=== PATIENT | female | born 1955 | race Caucasian/White ===

== ENCOUNTER → 2018-05-07 | Outpatient (CLI) | payer OTHER ==
--- NOTE | 2018-05-09 08:51 | MM ---
Reason for exam: screening (asymptomatic). Last mammogram was performed 2 years and 11 months ago. History: Patient is postmenopausal. Family history of breast cancer in maternal aunt at age 81. Physical Findings: A clinical breast exam by your physician is recommended on an annual basis and results should be correlated with mammographic findings. MG Screening Mammo w CAD Bilateral CC and MLO view(s) were taken. Prior study comparison: June 10, 2015, bilateral MG screening mammo w CAD. June 02, 2014, bilateral MG screening mammo w CAD. There are scattered fibroglandular densities. No significant changes when compared with prior studies. ASSESSMENT: Negative, BI-RAD 1 RECOMMENDATION: Routine screening mammogram of both breasts in 1 year.
== END ==
LOC: RADMAMWWP 13:56
PROVIDERS: ATTEND Family Medicine
DX: Z12.31 Encounter for screening mammogram for malignant neoplasm of breast (principal)
CPT/HCPCS: 77067

== ENCOUNTER → 2018-11-29 | Outpatient (CLI) | payer OTHER ==
[2018-11-29 14:44] LABS: Basophils # (A) 0.1 k/uL (0-0.2); Basophils % (A) 1 %; Eosinophils # (A) 0.2 k/uL (0-0.7); Eosinophils % (A) 2 %; HCT 40.8 % (34.0-46.0); HGB 13.9 gm/dL (11.4-16.0); Lymphocytes # (A) 2.8 k/uL (1.0-4.8); Lymphocytes % (A) 33 %; MCH 31.2 pg (25.0-35.0); MCHC 34.2 g/dL (31.0-37.0); MCV 91.2 fL (80.0-100.0); Mean Platelet Volume 6.2; Monocytes # (A) 0.5 k/uL (0-1.0); Monocytes % (A) 5 %; Neutrophils # (A) 4.7 k/uL (1.3-7.7); Neutrophils % (A) 56 %; Platelet Count 302 k/uL (150-450); RBC 4.47 m/uL (3.80-5.40); RDW 12.8 % (11.5-15.5); WBC 8.3 k/uL (3.8-10.6)
== END | disposition home or self-care (01) ==
LOC: LABWHC1 13:55
PROVIDERS: ATTEND Orthopaedic Surgery
DX: Z01.812 Encounter for preprocedural laboratory examination (principal); G56.01 Carpal tunnel syndrome, right upper limb
CPT/HCPCS: 80051; 85025

== ENCOUNTER 2018-12-07 08:29 | Day surgery (SDC) | payer OTHER ==
[2018-12-04 15:09] VITALS: BMI 36.3
--- NOTE | 2018-12-06 12:10 | HP ---
HISTORY AND PHYSICAL CHIEF COMPLAINT: Right hand pain and numbness. HISTORY OF PRESENT ILLNESS: The patient is a 63-year-old right-hand dominant female who presents with progressive right hand pain and numbness for the past several years. It has worsened recently. She notes she has tried bracing and medications without much relief. PAST MEDICAL HISTORY: Significant for hypertension and rheumatoid arthritis. PAST SURGICAL HISTORY: Negative. CURRENT MEDICATIONS: 1. Baclofen. 2. Lisinopril. 3. Lopressor. 4. Zantac. She denies drug allergies. FAMILY HISTORY: Family history is significant for heart disease. SOCIAL HISTORY: Significant for current tobacco use. REVIEW OF SYSTEMS: A 16 point review of systems otherwise reviewed and is noncontributory. PHYSICAL EXAMINATION: On examination, the patient is approximately 5 foot 6, 224 pounds of endomorphic habitus. HEENT: Exam is nonfocal. NECK: Supple. She is nontender about the right shoulder and elbow. On examination of her right wrist, she has a positive Tinel's over the carpal canal. Light touch is diffusely diminished throughout the right digits. Mild thenar wasting is noted. Abductor pollicis brevis strength is 5-/5. She has full digital range of motion. EMG report 04/03/2018 shows moderate right carpal tunnel syndrome. IMPRESSION: Right carpal tunnel syndrome-symptomatic. RECOMMENDATIONS: I talked to the patient at length regarding her condition along with treatment options. At this point, she notes she is quite symptomatic despite conservative measures. After a thorough discussion, she opts to proceed with surgery. We will plan to proceed with right carpal tunnel release. Risks and benefits were discussed at length in layman's terms. We will likely perform that utilizing a local anesthetic and IV sedation. MMODL / IJN: [id number] / MTDD
[~2018-12-07 08:29] MED LIST: HYDROmorphone 0.5 MG/0.5 ML SYRINGE IVP PRN; LACTATED RINGERS 1,000 ML IV SCH; MIDAZOLAM 2 MG/2 ML VIAL IV PRN
[2018-12-07 08:56] VITALS: RESP 18; TEMP 98.8
[2018-12-07] MEDS ORDERED: LIDOCAINE 1% 20 ML VIAL (10MG/ML) FOR IV START INTRADERMA ONE (08:57)
[2018-12-07] MEDS ORDERED: fentaNYL (PF) 50 MCG/ML 2 ML AMP ONE (10:43)
[2018-12-07] MEDS ORDERED: PROPOFOL 10 MG/ML 20 ML VIAL IV ONE (10:43)
[2018-12-07] MEDS ORDERED: MIDAZOLAM 2 MG/2 ML VIAL ONE (10:43)
[2018-12-07] MEDS ORDERED: BUPIVACAINE (PF) 0.25% 30 ML VIAL SQ ONE ×3 (10:59)
--- NOTE | 2018-12-07 11:17 | P.OP ---
Date of Procedure: 12/07/18 Preoperative Diagnosis: Right carpal tunnel syndromesymptomatic Postoperative Diagnosis: Same Procedure(s) Performed: Right carpal tunnel release Anesthesia: MAC, local Surgeon: Jaleel Simon Estimated Blood Loss (ml): 1 Pathology: none sent Condition: stable Disposition: PACU Indications for Procedure: The patient's a 63-year-old female who presents with progressive right hand pain and numbness secondary carpal tunnel syndrome despite conservative measures. A discussion of the risks and benefits of operative intervention versus continued conservative measures was made with the patient. She opted to proceed with surgery. Operative risks to include infection, neurovascular injury, development of blood clots, possible incomplete resolution of symptoms, possible recurrence of symptoms and need for subsequent procedures was discussed. Informed consent was obtained. Operative Findings: As below Description of Procedure: The patient was brought to the operating room, and after induction of IV sedation the right upper extremity was prepped and draped in normal fashion. The proposed incision site was outlined skin marker in line with the radial aspect the fourth ray extending from the volar wrist crease distally 2-1/2 cm. One quarter percent plain Marcaine was injected into the proposed incision site. 9 mL was utilized. The tourniquet was inflated to 250 mmHg. The skin incision was then made. The skin was incised sharply. Subcutaneous tissues were divided sharply the superficial palmar fascia was identified and split in line with the skin incision. The transverse carpal ligament was identified and transected under direct visualization distally to level the palmar fat pad. Proximal was taken level of the volar wrist crease. A plane above and below the transverse carpal ligament was then bluntly developed with tenotomies. The confluence of the distal forearm fascia and the transverse carpal ligament was then transected under direct visualization proximally with the tines pointed in the ulnar direction. I felt this was adequate proximal release. Neural lysis was not performed. The wound was irrigated with normal saline. Electrocautery was used for hemostasis. The skin was reapproximated with simple 3-0 nylon sutures. A sterile dressing was applied. The tourniquet was deflated with less than 15 minutes total tourniquet time. Patient was awoken from sedation and transferred to the recovery room in good condition. Blood loss was estimated 1 mL. No complications were incurred. Sponge and needle counts were correct at the end the case.
[2018-12-07 11:44] VITALS: BP 112/77; PULSE 74
== END 2018-12-07 11:51 | disposition home or self-care (01) ==
LOC: OR 08:29
PROVIDERS: ATTEND Orthopaedic Surgery
DX: G56.01 Carpal tunnel syndrome, right upper limb (principal); I10 Essential (primary) hypertension; E78.5 Hyperlipidemia, unspecified; G25.81 Restless legs syndrome; K21.9 Gastro-esophageal reflux disease without esophagitis; M06.9 Rheumatoid arthritis, unspecified; Z79.1 Long term (current) use of non-steroidal anti-inflammatories (NSAID); Z79.899 Other long term (current) drug therapy; Z72.0 Tobacco use; Z82.49 Family history of ischemic heart disease and other diseases of the circulatory system
CPT/HCPCS: 64721; J2250; J0690; J3010; J2704

== ENCOUNTER 2019-02-22 09:37 | Day surgery (SDC) | payer OTHER ==
[2019-02-20 12:04] VITALS: BMI 35.9
--- NOTE | 2019-02-21 10:00 | HP ---
HISTORY AND PHYSICAL CHIEF COMPLAINT: Left hand pain and numbness. 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 It has worsened recently. She is having pain with gripping and grasping. She is having night symptoms. She takes Motrin intermittently. PAST MEDICAL HISTORY: Significant for rheumatoid arthritis and hypertension. PAST SURGICAL HISTORY: Significant for right carpal tunnel release. CURRENT MEDICATIONS: 1. Baclofen. 2. Lisinopril. 3. Lopressor. 4. Zantac. She denies drug allergies. FAMILY HISTORY: Significant for heart disease. SOCIAL HISTORY: Significant for intermittent tobacco use. 16 POINT REVIEW OF SYSTEMS: Otherwise reviewed and is noncontributory. PHYSICAL EXAMINATION: On examination, the patient is approximately 5 foot 6, 224 pounds of endomorphic habitus. HEENT: Exam is nonfocal. NECK: Supple. She is nontender about the left shoulder and elbow. On examination of her left wrist, she has a positive Tinel's PI any over the carpal canal. Carpal tunnel compression test positive. Adductor pollicis brevis strength is 5-/5. She has mild air valve repairer weakness. Light touch is diffusely diminished in the left digits. IMPRESSION: Symptomatic left carpal tunnel syndrome. RECOMMENDATION: I talked to the patient at length regarding her condition along with treatment options. At this point, she is asymptomatic despite conservative measures and opts to proceed with surgery. We will plan to proceed with left carpal tunnel release. We will likely perform that as an outpatient procedure. Risks and benefits were discussed at length in layman's terms. MMODL / IJN: [id number] /
[~2019-02-22 09:37] MED LIST changes: +DEXAMETHASONE SOD PHOSPHATE 10 MG/ML 1 ML VIAL IV ONE; +ONDANSETRON 4 MG/2 ML VIAL IVP ONE; +SCOPOLAMINE 1.5MG/72HR PATCH TRANSDERM ONE
[2019-02-22 09:54] VITALS: RESP 18; TEMP 97.8
[2019-02-22] MEDS ORDERED: LACTATED RINGERS 1,000 ML IV ONE (09:55)
[2019-02-22] MEDS ORDERED: LIDOCAINE 1% 20 ML VIAL (10MG/ML) FOR IV START INTRADERMA ONE (09:59)
[2019-02-22] MEDS ORDERED: PROPOFOL 10 MG/ML 20 ML VIAL IV ONE (11:10)
[2019-02-22] MEDS ORDERED: MIDAZOLAM 2 MG/2 ML VIAL ONE (11:10)
[2019-02-22] MEDS ORDERED: fentaNYL (PF) 50 MCG/ML 2 ML AMP ONE (11:10)
[2019-02-22] MEDS ORDERED: BUPIVACAINE (PF) 0.25% 30 ML VIAL SQ ONE (11:33)
--- NOTE | 2019-02-22 11:46 | P.OP ---
Date of Procedure: 02/22/19 Preoperative Diagnosis: left carpal tunnel syndromesymptomatic Postoperative Diagnosis: same Procedure(s) Performed: left carpal tunnel release Anesthesia: MAC, local Surgeon: Jaleel Simon Estimated Blood Loss (ml): 1 Pathology: none sent Condition: stable Disposition: PACU Indications for Procedure: The patient is a 63-year-old female who presents with progressive left hand pain and numbness secondary to carpal tunnel syndrome despite conservative measures. A discussion of the risks and benefits of operative intervention versus continued conservative measures was made with patient. She opted to proceed with surgery. Operative risks to include infection, neurovascular injury, development of blood clots, possible incomplete resolution of symptoms, possible recurrence of symptoms and need for subsequent procedures was discussed. Informed consent was obtained. Operative Findings: as below Description of Procedure: The patient was brought to the operating room, and after induction of IV sedation the left upper extremity was prepped and draped in normal fashion. The proposed incision site was outlined skin marker in line with the radial aspect the fourth ray extending from the volar wrist crease distally 2-1/2 cm. One quarter percent plain Marcaine was injected into the proposed incision site. 9 mL was utilized. The tourniquet was inflated to 250 mmHg. The skin incision was then made. The skin was incised sharply. Subcutaneous tissues were divided sharply the superficial palmar fascia was identified and split in line with the skin incision. The transverse carpal ligament was identified and transected under direct visualization distally to level the palmar fat pad. Proximal was taken level of the volar wrist crease. A plane above and below the transverse carpal ligament was then bluntly developed with tenotomies. The confluence of the distal forearm fascia and the transverse carpal ligament was then transected under direct visualization proximally with the tines pointed in the ulnar direction. I felt this was adequate proximal release. Neural lysis was not performed. The wound was irrigated with normal saline. Electrocautery was used for hemostasis. The skin was reapproximated with simple 3-0 nylon sutures. A sterile dressing was applied. The tourniquet was deflated with less than 15 minutes total tourniquet time. Patient was awoken from sedation and transferred to the recovery room in good condition. Blood loss was estimated 1 mL. No complications were incurred. Sponge and needle counts were correct at the end the case.
[2019-02-22 12:03] VITALS: BP 132/82; PULSE 75
== END 2019-02-22 12:16 | disposition home or self-care (01) ==
LOC: OR 09:37
PROVIDERS: ATTEND Orthopaedic Surgery
DX: G56.02 Carpal tunnel syndrome, left upper limb (principal); M06.9 Rheumatoid arthritis, unspecified; I10 Essential (primary) hypertension; Z82.49 Family history of ischemic heart disease and other diseases of the circulatory system; E78.5 Hyperlipidemia, unspecified; Z87.891 Personal history of nicotine dependence; K21.9 Gastro-esophageal reflux disease without esophagitis; Z90.49 Acquired absence of other specified parts of digestive tract; Z79.899 Other long term (current) drug therapy
CPT/HCPCS: 64721; J2250; J1100; J0690; J2405; J3010; J2704

== ENCOUNTER → 2019-08-19 | Outpatient (CLI) | payer OTHER ==
--- NOTE | 2019-08-22 10:32 | MM ---
Reason for exam: screening (asymptomatic). Last mammogram was performed 1 year and 3 months ago. History: Patient is postmenopausal. Family history of breast cancer in maternal aunt at age 81. Physical Findings: A clinical breast exam by your physician is recommended on an annual basis and results should be correlated with mammographic findings. MG Screening Mammo w CAD Bilateral CC and MLO view(s) were taken. XCCL view(s) were taken of the right breast. Prior study comparison: May 07, 2018, bilateral MG screening mammo w CAD. June 10, 2015, bilateral MG screening mammo w CAD. There are scattered fibroglandular densities. Increased nodularity in left breast. This finding is changed when compared with previous exams. ASSESSMENT: Incomplete: need additional imaging evaluation, BI-RAD 0 RECOMMENDATION: Special view mammogram of the left breast. If lesion persists on supplemental views, image directed ultrasound is recommended. [facility] will attempt to contact patient to return for supplemental views and ultrasound if indicated.
== END | disposition home or self-care (01) ==
LOC: RADMAMWWP 15:02
PROVIDERS: ATTEND Family Medicine
DX: Z12.31 Encounter for screening mammogram for malignant neoplasm of breast (principal)
CPT/HCPCS: 77067

== ENCOUNTER → 2019-08-27 | Outpatient (CLI) | payer OTHER ==
--- NOTE | 2019-08-28 09:12 | MM ---
Reason for exam: additional evaluation requested from abnormal screening. Last mammogram was performed less than 1 month ago. History: Patient is postmenopausal. Family history of breast cancer in maternal aunt at age 81. Physical Findings: Nurse did not find any significant physical abnormalities on exam. MG Work Up Mamm w CAD LT Spot compression CC, spot compression MLO, and LM view(s) were taken of the left breast. Prior study comparison: August 19, 2019, bilateral MG screening mammo w CAD. May 07, 2018, bilateral MG screening mammo w CAD. There are scattered fibroglandular densities. Finding: There sre three small circumscribed round mass located 4 cm from the nipple in the anterior, central position of the left breast. These results were verbally communicated with the patient and result sheet given to the patient on 08/27/19. ASSESSMENT: Incomplete: need additional imaging evaluation, BI-RAD 0 RECOMMENDATION: Ultrasound of the left breast.
--- NOTE | 2019-08-28 09:14 | USB ---
Reason for exam: additional evaluation requested from abnormal screening. History: Patient is postmenopausal. Family history of breast cancer in maternal aunt at age 81. US Breast Workup Limited LT Left limited breast ultrasound including focal area of concern, retroareolar and axilla demonstrates a 0.7 x 0.5 x 0.6cm lobular, mixed lesion at 4 o'clock. New mammographic abnormality. These results were verbally communicated with the patient and result sheet given to the patient on 08/27/19. ASSESSMENT: Suspicious, BI-RAD 4 RECOMMENDATION: Ultrasound core biopsy of the left breast. (FNA +/-) Called office with mammographic findings and has scheduled an appointment for the patient for 08/29/19 at 11:[address] Cruz. PRELIMINARY REPORT CALLED AND FAXED TO DR. CRUZ ON 08/28/19.
== END | disposition home or self-care (01) ==
LOC: RADMAMWWP 13:37
PROVIDERS: ATTEND Family Medicine
DX: R92.8 Other abnormal and inconclusive findings on diagnostic imaging of breast (principal)
CPT/HCPCS: 77065

== ENCOUNTER → 2019-09-05 | Day surgery (SDC) | payer OTHER ==
[2019-09-05 09:45] VITALS: TEMP 97.8
[2019-09-05 11:56] VITALS: BP 131/79; PULSE 71; RESP 18
--- NOTE | 2019-09-05 13:12 | USB ---
EXAMINATION TYPE: US biopsy breast VAD LT, MG post biopsy diagnostic mammo LT wo CAD DATE OF EXAM: 09/05/2019 CLINICAL HISTORY: 63-year-old female R92.8 ABN MAMMO. TECHNIQUE: Ultrasound guided core biopsy of left breast. COMPARISON: 08/27/2019 FINDINGS: The procedure of ultrasound guided core biopsy was explained to the patient. Benefits, alternatives, and risks were discussed. An informed consent was then obtained. The patient was placed in supine positioning for imaging and for the procedure. The overlying skin was prepped and draped in usual sterile fashion. Lidocaine was used as anesthetic into the skin and subcutaneous tissue up to area of concern in the 9:00 left breast. Under ultrasound guidance, a 13-gauge vacuum-assisted mammotome biopsy gun was used to obtain 4 core samples. Following this, a ribbon clip was left at the site of biopsy. The lesion collapsed after the first pass suggesting a benign cystic etiology. The patient tolerated the procedure well without any immediate complication. The patient was kept in the radiology department for short stay after the procedure and then discharged home in stable condition. Postprocedure mammogram shows clip at the 9:00 position. IMPRESSION: 1. Successful, uncomplicated ultrasound guided core biopsy of the lobulated 9:00 left breast mass. Note that the lesion collapsed after the first pass suggesting a benign, cystic etiology; full pathology results to follow. 2. If benign results, 6 month follow-up mammogram will be recommended for the other areas of nodularity. Pathology Results: Benign LEFT BREAST, ULTRASOUND GUIDED CORE BIOPSY: Fibrocystic changes including moderate usual type ductal hyperplasia, cysts, fibrosis and apocrine metaplasia. Recommendation Follow up mammogram of the left breast in 6 months. AMIE
== END ==
LOC: RADUSWWP 09:22
PROVIDERS: ATTEND Family Medicine
DX: N60.12 Diffuse cystic mastopathy of left breast (principal)
CPT/HCPCS: 88305; 77065; 19083; A4648; J2001

== ENCOUNTER → 2019-09-25 | Outpatient (CLI) | payer OTHER ==
[2019-09-25 14:42] LABS: Basophils # (A) 0.1 k/uL (0-0.2); Basophils % (A) 1 %; Eosinophils # (A) 0.1 k/uL (0-0.7); Eosinophils % (A) 2 %; HCT 42.9 % (34.0-46.0); HGB 14.1 gm/dL (11.4-16.0); Lymphocytes % (A) 40 %; MCH 32.3 pg (25.0-35.0); MCHC 32.8 g/dL (31.0-37.0); MCV 98.4 fL (80.0-100.0); Mean Platelet Volume 7.6; Monocytes # (A) 0.4 k/uL (0-1.0); Monocytes % (A) 5 %; Neutrophils # (A) 3.7 k/uL (1.3-7.7); Neutrophils % (A) 50 %; Platelet Count 250 k/uL (150-450); RBC 4.36 m/uL (3.80-5.40); RDW 12.8 % (11.5-15.5); WBC 7.4 k/uL (3.8-10.6)
[2019-09-25 14:54] LABS: Potassium 3.7 mmol/L (3.5-5.1)
== END | disposition home or self-care (01) ==
LOC: LABPAT 13:45
PROVIDERS: ATTEND Orthopaedic Surgery
DX: Z01.818 Encounter for other preprocedural examination (principal); M65.311 Trigger thumb, right thumb
CPT/HCPCS: 36415; 80051; 85025

== ENCOUNTER → 2019-10-18 | Day surgery (SDC) | payer OTHER ==
[2019-10-14 13:52] VITALS: BMI 37.1
--- NOTE | 2019-10-17 14:16 | HP ---
HISTORY AND PHYSICAL CHIEF COMPLAINT: Right thumb pain and locking. 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 She notes it is getting worse. She has been wearing a brace for this. PAST MEDICAL HISTORY: Significant for rheumatoid arthritis and hypertension. PAST SURGICAL HISTORY: Significant for right carpal tunnel release. CURRENT MEDICATIONS: Baclofen, lisinopril, Lopressor, and Zantac. She denies drug allergies. FAMILY HISTORY: Significant for heart disease. SOCIAL HISTORY: Significant for current tobacco use. 16 POINT REVIEW OF SYSTEMS: Otherwise reviewed and is noncontributory. PHYSICAL EXAMINATION: On examination, the patient is approximately 5 foot 6, 230 pounds of endomorphic habitus. HEENT: Exam is nonfocal. Neck is supple. She is nontender about the right shoulder and elbow. Examination of the right hand. She is tender about the oblique reynaldo of the thumb. She has palpable triggering. She has limited range of motion because of pain. Her distal neurovascular appears intact in the right thumb. X-rays of the right hand obtained in the office show no definite bony abnormality. IMPRESSION: Right trigger thumb-symptomatic. RECOMMENDATIONS: I talked to the patient at length regarding her condition and all the treatment options. After thorough discussion, she opts to proceed with surgery. We will plan to proceed with right trigger thumb release. Risks and benefits were discussed at length in layman's terms. We will likely perform that utilizing local anesthetic and IV sedation. MILADL / IJN: [id number] /
[~2019-10-18] MED LIST changes: +BUPIVACAINE (PF) 0.25% 30 ML VIAL SQ ONE; +LIDOCAINE 1% (10MG/ML) FOR IV START INTRADERMA PRN; +LIDOCAINE 1% INJ 10MG/ML (20 ML MDV) ONE; -MIDAZOLAM 2 MG/2 ML VIAL IV PRN; +MIDAZOLAM 2 MG/2 ML VIAL ONE; +ONDANSETRON 4 MG/2 ML VIAL ONE; +PROPOFOL 10 MG/ML 20 ML VIAL IV ONE; +fentaNYL (PF) 50 MCG/ML 2 ML AMP ONE
[2019-10-18 11:32] VITALS: TEMP 98.3
--- NOTE | 2019-10-18 12:32 | P.OP ---
Date of Procedure: 10/18/19 Preoperative Diagnosis: Symptomatic right trigger thumb Postoperative Diagnosis: Same Procedure(s) Performed: Right trigger thumb release Anesthesia: MAC, local Surgeon: Jaleel Simon Estimated Blood Loss (ml): 1 Pathology: none sent Condition: stable Disposition: PACU Indications for Procedure: The patient's a 64-year-old female presents with progressive right thumb pain and locking. Clinically she was noted of evidence of a trigger thumb. A discussion of the risks and benefits of conservative measures versus operative intervention was made with patient. She opted to proceed with surgery. Operative risks to include infection, neurovascular injury, possible recurrence and need for subsequent procedures was discussed. Informed consent was obtained. Operative Findings: as below Description of Procedure: The patient was brought to the operating room, and after induction of IV sedation the right upper extremity was prepped and draped in normal fashion. The proposed incision site was outlined along the volar proximal crease of the right thumb. 8 mL of quarter percent plain Marcaine was injected. The tourniquet was inflated to 250 mmHg. The skin was then incised sharply. Subcu tissues were divided bluntly. The neurovascular bundles were gently retracted. The oblique reynaldo was clearly identified and transected under direct visualization proximal and distal. The flexor tendon was inspected. There was nodularity. There appeared to be good excursion after the release. The wound was irrigated normal saline. The skin was reapproximated with simple 3-0 nylon suture. A sterile dressing was applied. The tourniquet was deflated less than 15 minutes total tourniquet time. The patient was awoken from sedation and transferred to recovery room in good condition. Blood loss estimated 1 mL. No complications were incurred. Sponge and needle counts were correct at the end the case.
[2019-10-18 12:36] VITALS: RESP 17
[2019-10-18 13:03] VITALS: BP 119/79; PULSE 65
== END | disposition home or self-care (01) ==
LOC: OR 11:02
PROVIDERS: ATTEND Orthopaedic Surgery
DX: M65.311 Trigger thumb, right thumb (principal); M06.9 Rheumatoid arthritis, unspecified; I10 Essential (primary) hypertension; E78.5 Hyperlipidemia, unspecified; G25.81 Restless legs syndrome; E66.9 Obesity, unspecified; L40.9 Psoriasis, unspecified; Z68.36 Body mass index [BMI] 36.0-36.9, adult; Z86.69 Personal history of other diseases of the nervous system and sense organs; Z98.890 Other specified postprocedural states; Z79.899 Other long term (current) drug therapy; Z87.891 Personal history of nicotine dependence; Z82.49 Family history of ischemic heart disease and other diseases of the circulatory system
CPT/HCPCS: 26055; J2250; J1100; J0690; J2405; J2001; J3010; J2704

== ENCOUNTER → 2021-10-14 | Outpatient (CLI) | payer OTHER ==
--- NOTE | 2021-10-15 15:50 | MM ---
Reason for Exam: Screening (asymptomatic). Last mammogram was performed 2 year(s) and 2 month(s) ago. Patient History: Menarche at age 13. First Full-Term at age 17. Postmenopausal. 09/05/2019, Benign Core Biopsy on the left side. Maternal aunt had breast cancer, age 81. Risk Values: Claire 5 year model risk: 1.5%. NCI Lifetime model risk: 6.1%. Prior Study Comparison: 08/19/2019 Bilateral Screening Mammogram, [facility]. 08/27/2019 Left Diagnostic Mammogram, [facility]. 09/05/2019 Left Diagnostic Mammogram, [facility]. Tissue Density: There are scattered fibroglandular densities. Findings: Analyzed By CAD. Biopsy core marker is within the left breast No suspicious groups of microcalcifications, spiculated or lobular masses, architectural distortion or other secondary signs of malignancy are mammographically apparent. Overall Assessment: Benign, BI-RAD 2 Management: Screening Mammogram of both breasts in 1 year. A negative mammogram report should not preclude additional follow up of suspicious palpable abnormalities. Patient should continue monthly self breast exam. A clinical breast exam by your physician is recommended on an annual basis and results should be correlated with mammographic findings. Electronically signed and approved by: Wolf Yang D.O. Radiologis
== END | disposition home or self-care (01) ==
LOC: RADMAMWWP 13:29
PROVIDERS: ATTEND Family Medicine
DX: Z12.31 Encounter for screening mammogram for malignant neoplasm of breast (principal); Z78.0 Asymptomatic menopausal state; Z80.3 Family history of malignant neoplasm of breast
CPT/HCPCS: 77067

== ENCOUNTER → 2022-01-03 | Outpatient (CLI) | payer OTHER ==
--- NOTE | 2022-01-03 13:04 | US ---
EXAMINATION TYPE: US abdomen complete DATE OF EXAM: 01/03/2022 COMPARISON: US, CT CLINICAL HISTORY: 66-year-old female R94.5 ABNORMAL RESULTS OF LIVER FUNCTION STUDIES. Cholecystecto my, appendectomy. Abnormal liver function studies. TECHNIQUE: Multiple sonographic images of the abdomen are obtained. FINDINGS: EXAM MEASUREMENTS: Liver Length: 21.04 cm CBD: 0.37 cm Spleen: 10.2 cm Right Kidney: 11.8 x 6.3 x 5.5 cm Left Kidney: 10.5 x 5.7 x 6.0 cm HAZMAT CDL DRIVER NOTES: Limited due to gas. Pancreas: Limited visibility. Liver: Appears enlarged and heterogeneous. Increased attenuation. Hypoechoic area seen near the cecil hepatis: 2.3 x 1.9 x 1.6 cm. (Versus 1.8 x 1.8 x 1.4 cm, previously. Not as well-seen previously) Gallbladder: Surgically absent Evidence for sonographic Mercado's sign: No CBD: Appears wnl Spleen: Appears wnl Right Kidney: Echogenic focus at the lower pole measuring 0.4 x 0.3 x 0.3 cm. No hydronephrosis. Left Kidney: No hydronephrosis or masses seen Upper IVC: Appears wnl Abd Aorta: Appears ectatic. Iliacs were obscured. IMPRESSION: 1. Hepatomegaly (21.0 cm) with moderate to severe hepatic steatosis. Correlate with LFTs, lipid profi le, and patient risk factors. 2. A vague 2.3 x 1.9 cm lesion within the liver near the cecil hepatis. Not as well seen in 2013 but measured approximately 1.8 x 1.8 cm. The indolent behavior suggests a benign etiology. Reassess at a 6 month follow-up. 3. Status post cholecystectomy. No biliary ductal dilatation. 4. A punctate 4 mm nonobstructive right renal calculus. No hydronephrosis.
== END | disposition home or self-care (01) ==
LOC: RADUSWWP 09:59
PROVIDERS: ATTEND Family Medicine
DX: N20.0 Calculus of kidney (principal); K76.0 Fatty (change of) liver, not elsewhere classified; Z90.49 Acquired absence of other specified parts of digestive tract
CPT/HCPCS: 76700

== ENCOUNTER → 2022-01-12 | Outpatient (CLI) | payer OTHER ==
--- NOTE | 2022-01-12 14:12 | XR ---
EXAMINATION TYPE: XR hand complete LT DATE OF EXAM: 01/12/2022 CLINICAL HISTORY: Left hand pain. TECHNIQUE: Frontal, lateral and oblique images of the left hand are obtained. COMPARISON: None. FINDINGS: There is no acute fracture/dislocation evident in the left hand. Mild narrowing at the sec ond and third MCP joints. [id number] soft tissue swelling in the second finger centered at the second PIP joint where there is mild narrowing and mild to moderate peripheral spurring . Mild to mo derate narrowing and mild spurring first interphalangeal joint. Moderate ulnar spur fifth PIP joint w ith mild soft tissue swelling centered at this level. IMPRESSION: As above.
== END | disposition home or self-care (01) ==
LOC: RADXRYALE 13:39
PROVIDERS: ATTEND Physician Assistant
DX: M25.742 Osteophyte, left hand (principal); M79.89 Other specified soft tissue disorders

== ENCOUNTER → 2022-02-18 | Outpatient (CLI) | payer OTHER ==
--- NOTE | 2022-02-18 15:05 | MR ---
EXAMINATION: MRI ABDOMEN WITHOUT AND WITH CONTRAST. DATE OF EXAM: 02/18/2022 2:47 PM HISTORY: Abnormal liver function tests. COMPARISON: CT abdomen and pelvis on 11/05/2014.. TECHNIQUE: Multiplanar, multisequence images of the abdomen were obtained without and with contrast. 10 mL of Gadavist was given intravenously.. FINDINGS: ABDOMEN Lower Chest: Normal. Liver: The liver is enlarged measuring 22 cm in craniocaudal dimension. There is significant loss of signal intensity on the T1 out of phase images when compared to the in phase images compatible with d iffuse hepatic steatosis. There is a 1.6 cm hemangioma in the inferior aspect of the left lobe of the liver. No suspicious liver lesions are otherwise seen at this time. Gallbladder/Biliary: Absent. Pancreas: Normal. Spleen: Normal. Adrenal Glands: Normal. Kidneys: There are subcentimeter cysts are seen throughout the kidneys bilaterally. No suspicious charbel al lesions are otherwise identified. GI Tract: Normal. (Note: Small and large bowel are incompletely imaged on CT abdomen as these stru ctures are partially in the pelvis.) Mesentery/Peritoneum: Normal. Vasculature: Normal. Lymph Nodes: Normal. Abdominal Wall: Normal. Musculoskeletal: Normal. IMPRESSION: 1. Hepatomegaly with severe diffuse hepatic steatosis. 2. Hemangioma of the left lobe of the liver. 3. No acute findings otherwise identified.
== END | disposition home or self-care (01) ==
LOC: RADMRIMAIN 13:49
PROVIDERS: ATTEND Family Medicine
DX: K76.0 Fatty (change of) liver, not elsewhere classified (principal); D18.03 Hemangioma of intra-abdominal structures; R93.2 Abnormal findings on diagnostic imaging of liver and biliary tract
CPT/HCPCS: 74183; A9585

== ENCOUNTER → 2022-06-23 | Outpatient (CLI) | payer OTHER ==
[2022-06-23 14:04] VITALS: BP 115/73; PULSE 65; RESP 16; TEMP 97.7
--- NOTE | 2022-06-23 14:33 | P.PAINPG ---
PQRS Measure Charge Sheet Comment: HISTORY OF PRESENT ILLNESS: 66 yr old female w at side as a referral from [facility] presents today w severe and chronic LBP x 6 mo secondary to DDD, spondylosis and facet arthropathy without myelopathy for evaluation. Pt states pain level is provoked at 6/10 in intensity, constant, localized in the mid to lower lumbar spine, achy, throbbing in character w shooting pain towards the RLE. Pain is provoked by weight bearing activity. Pain is alleviated by PT twice weekly x 5 wks which ended June 2022 and provided modest relief, heat, medications (Neurontin, Ibu), repositioning and rest. PMH: Hyperlipidemia, HTN, NIDDM, GERD, OA PSH: R Trigger Thumb Release (2019), L CT Release (2018), EGD w Colonoscopy (2014), Laparoscopic Cholecystectomy SH: Former Tobacco User, No ETOH abuse, No illicit drug use FH: Fa- CHF All: NKDA Meds: See list REVIEW OF ORGAN SYSTEMS: CONSTITUTIONAL: No fevers or chills. No recent weight loss. NEUROLOGICAL: + numbness and tingling along the distal extremities. No seizure disorders or headaches. MUSCULOSKELETAL: + pain PSYCHIATRIC: Denies current depression or suicidal thoughts. Physical Examinations : Constitutional : Cooperative , not in acute distress . Neurologic : Cranial nerve II to XII intact. No focal neurological deficits. Psychiatric : alert & oriented x 3. Matching mood & appropriate affect. Judgment & insight intact. Musculoskeletal : Cervical Spine Motor strength in the deltoid and biceps: Normal right side. Normal Left side Motor strength biceps and the wrist extensors: Normal right side . Normal left side Motor strength in the triceps muscle: Normal right side. Normal left side Deep tendon reflexes: Normal at the biceps. Normal at Brachioradialis. Normal at triceps Vertebral body tenderness to deep palpation over Cervical facet loading test: positive bilaterally Spurling test: positive bilaterally Neck distraction test: positive bilaterally Aurea sign: positive bilaterally Lumbar spine Motor strength lower extremities ,thigh and legs 5/5 Right side , 5/5 Left side Deep tendon reflexes : Normal Knee Jerk. Normal Ankle Jerk Vertebral body tenderness over Lumbar facet Loading Test: positive Right / positive Left Range of motion of the lumbar spine Flexion 30 degrees, extension 10 degrees Straight Leg Raise test: Left/ Right positive at degree Yaneth test: positive right / positive left. Severe tenderness over the Sacroiliac joint on the Right / Left sides Gaenslen test: positive bilaterally Seated flexion test: positive bilaterally. Sacral spine : Severe tenderness over the Sacroiliac joint: right side / left side Range of motion: Flexion of the lumbar spine <60 degrees Range of motion: Extension of the lumbar spine <20 degrees R Gaenslen's Test positive Yaneth test: positive right side / left side Thigh Thrust Test R positive Sacral Thrust Test Imaging: None on file Assessment/ Plan : R Sacroiliitis Recommendation of R SI injection. May need a series for optimal pain relief. Risks, benefits of procedure discussed and patient verbalized understanding. Admits to aspirin or anti- coagulant use or medical history of diabetes. Protocol for discontinuation/ continuation of medications earl procedure discussed. [place] 5/325mg #15 NR Use, side effects, adverse reactions and safe storage discussed. Pt acknowledged understanding. All questions answered. I have spent greater than 30 minutes on patient care today. Dr Bowden was available by phone for the evaluation of this patient. The time was used to review the medical records including relevant urine studies and Prescription history (MAPs), review of the available imaging, evaluation and examination of the patient, coordination of care with the medical staff and if applicable referring physicians, as well as creation of the medical record - Pain Location Lower Back Non-Pharmacological Interventions: Heat, Inactivity, Position/Reposition Pharmacological Interventions: PRN Medication PQRS Narrative: Smoking Status Current some day smoker Home Medications: Ambulatory Orders Lovastatin [Mevacor] 20 mg PO DAILY 11/05/14 Ammonium Lactate Cream [Lac-Hydrin 12% Cream] 1 applic TOPICAL BID 12/04/18 Baclofen [Lioresal] 10 mg PO HS 12/04/18 Lisinopril-Hctz 10-12.5 mg [Zestoretic 10-12.5] 1 tab PO QAM 12/04/18 1% Cream (Unknown Name) 1 applic TOPICAL BID 10/14/19 HYDROcodone/APAP 5-325MG [[place] 5-325] 1 tab PO Q4HR PRN 3 Days #15 tab 06/23/22 Controlled Substance Measures - Controlled Substance Measures Is patient prescribed a controlled substance at discharge?: Yes When asked, does pt state using other controlled substances?: Yes If prescribed controlled substance>3 days was MAPS reviewed?: Prescribed <3 Days If Rx opioid, was Start Talking consent form obtained?: Yes If opioid is for acute pain is fill amount 7 days or less?: Yes Was information provided regarding opioid addiction?: Yes
== END ==
LOC: PNWHC3 13:32
PROVIDERS: ATTEND Specialist
DX: M47.26 Other spondylosis with radiculopathy, lumbar region (principal); M46.1 Sacroiliitis, not elsewhere classified; E78.5 Hyperlipidemia, unspecified; I10 Essential (primary) hypertension; K21.9 Gastro-esophageal reflux disease without esophagitis; M43.16 Spondylolisthesis, lumbar region; M19.90 Unspecified osteoarthritis, unspecified site; E11.9 Type 2 diabetes mellitus without complications; F17.200 Nicotine dependence, unspecified, uncomplicated
CPT/HCPCS: 99211

== ENCOUNTER 2022-07-19 06:05 | Day surgery (SDC) | payer OTHER ==
[2022-07-19 06:35] VITALS: TEMP 98
[2022-07-19 06:36] LABS: Glucose,Whole Blood 138 mg/dL (70-110)
[2022-07-19] MEDS ORDERED: LACTATED RINGERS 1,000 ML IV ONE ×2 (06:39→07:21)
[2022-07-19] MEDS ORDERED: methylPREDNISolone ACETATE 40 MG/ML 1 ML VIAL ONE (06:58)
[2022-07-19] MEDS ORDERED: MIDAZOLAM 2 MG/2 ML VIAL ONE (06:58)
[2022-07-19] MEDS ORDERED: fentaNYL (PF) 50 MCG/ML 2 ML AMP ONE (06:58)
[2022-07-19] MEDS ORDERED: ROPIVACAINE 5 MG/ML 20 ML AMPULE ONE (06:58)
[2022-07-19] MEDS ORDERED: IOPAMIDOL M200 10 ML VIAL ONE (06:58)
[2022-07-19 07:17] VITALS: RESP 16
--- NOTE | 2022-07-19 07:18 | P.PCN ---
Date of Procedure: 07/19/22 Procedure(s) Performed: Procedure= Right sacroiliac joints steroid injection under fluoroscopy guidance (fluoroscopy image stored on file in the radiology Department ) Preoperative diagnosis= 1-Right sacroiliitis . Postoperative diagnosis=Same as preop Diagnosis . Complication = none Condition= stable Anesthesia= moderate sedation with intravenous Versed 2 mg , and fentanyl 50 micrograms . Sedation start time:700 Sedation end time :707 Indication for the procedure= patient complaining of low back pain , examination was positive for severe tenderness over the sacroiliac joints bilaterally and patient diagnosed with sacroiliitis, for this reason he/ she was good candidate for sacroiliac joint steroid injection. Description of the procedure= procedure risk and benefits discussed with the patient, including but not limited, risk of infection and bleeding, and ALLERGIC reaction to the medication and not complete pain relief and patient agreed with the preceding patient taken to the operating room, placed in prone position or standard monitors applied to the patient then after induction of anesthesia back prepped with chlorhexidine 3 times , Then under strict sterile technique, first I did the right sacroiliac joint the which was identified under fluoroscopy guidance been local infiltration of the skin and subcu interstitial with lidocaine 1% then 22-gauge Quincke Needle advanced slowly under fluoroscopy and placed in the right sacroiliac joint needle placement confirmed with AP and oblique and lateral view, then after that Isovue 200 one mL injected which confirmed the correct needle placement with the appropriate arthrogram of the sacroiliac joint, and after appropriate needle placement confirmed and after negative aspiration, or heme , then Ropivacaine 0.5% 4 mL, and 40 mg of Depo-Medrol mixed together and injected in the right sacroiliac joint after negative aspiration patient tolerated the procedure well without any complication.
[2022-07-19] MEDS ORDERED: LIDOCAINE 1% (10MG/ML) FOR IV START INTRADERMA PRN (07:22)
[2022-07-19] MEDS ORDERED: LACTATED RINGERS 1,000 ML IV SCH (07:22)
[2022-07-19 07:32] VITALS: PULSE 61
[2022-07-19 07:36] VITALS: BP 114/72
--- NOTE | 2022-07-19 14:38 | FL ---
EXAMINATION TYPE: FL guided pain mgmt statistic DATE OF EXAM: 07/19/2022 FLUOROSCOPY Fluoroscopy time of 2 seconds was used during right SI joint injection. 2 image/s document/s the pro cedure. DOSE AREA PRODUCT (DAP) UGY*M,MGY*CM: 0.015
== END 2022-07-19 07:48 | disposition home or self-care (01) ==
LOC: ORPAIN 06:05
PROVIDERS: ATTEND Specialist
DX: M46.1 Sacroiliitis, not elsewhere classified (principal)
CPT/HCPCS: 27096; J2250; J1030; J3010; Q9966; J2795

== ENCOUNTER → 2024-02-05 | Outpatient (CLI) | payer OTHER ==
[2024-02-05 10:39] VITALS: BP 108/69; PULSE 68; RESP 16; TEMP 97.1
--- NOTE | 2024-02-05 16:21 | P.PAINPG ---
PQRS Measure Charge Sheet Comment: HISTORY OF PRESENT ILLNESS: A 68 yr old female w at side presents today w severe and chronic LBP > 1 yr mo secondary to radiculopathy, spondylosis and facet arthropathy without myelopathy, R Sacroiliitis for evaluation s/p R SI injection #1. Pt states she experienced 50 % pain relief s/p procedure. Pt states pain level is provoked at 8 /10 in intensity, constant, predominantly axial, localized in the mid to lower lumbar spine, achy, throbbing in character w shooting pain towards the hips and BL knees. Pain is provoked by weight bearing activity. Pain is alleviated by PT twice weekly x 16 wks which she is currently in, heat, medications , repositioning and rest. Interventional procedures include R SI injection x1 (July 2022) Medications include Tramadol, Ibu REVIEW OF ORGAN SYSTEMS: CONSTITUTIONAL: No fevers or chills. No recent weight loss. NEUROLOGICAL: + numbness and tingling along the distal extremities. No seizure disorders or headaches. MUSCULOSKELETAL: + pain PSYCHIATRIC: Denies current depression or suicidal thoughts. Physical Examinations : Constitutional : Cooperative , not in acute distress . Neurologic : Cranial nerve II to XII intact. No focal neurological deficits. Psychiatric : alert & oriented x 3. Matching mood & appropriate affect. Judgment & insight intact. Musculoskeletal : Cervical Spine Motor strength in the deltoid and biceps: Normal right side. Normal Left side Motor strength biceps and the wrist extensors: Normal right side . Normal left side Motor strength in the triceps muscle: Normal right side. Normal left side Deep tendon reflexes: Normal at the biceps. Normal at Brachioradialis. Normal at triceps Vertebral body tenderness to deep palpation over Cervical facet loading test: positive bilaterally Spurling test: positive bilaterally Neck distraction test: positive bilaterally Aurea sign: positive bilaterally Lumbar spine Motor strength lower extremities ,thigh and legs 5/5 Right side , 5/5 Left side Deep tendon reflexes : Normal Knee Jerk. Normal Ankle Jerk Vertebral body tenderness over L4 Lumbar facet Loading Test: positive Right / positive Left Range of motion of the lumbar spine Flexion 30 degrees, extension 10 degrees Straight Leg Raise test: Left/ Right positive at < 35 degrees Yaneth test: positive right / positive left. Severe tenderness over the Sacroiliac joint on the Right / Left sides Gaenslen test: positive bilaterally Seated flexion test: positive bilaterally. Sacral spine : Severe tenderness over the Sacroiliac joint: right side / left side Range of motion: Flexion of the lumbar spine <60 degrees Range of motion: Extension of the lumbar spine <20 degrees R Gaenslen's Test positive Yaneth test: positive right side / left side Thigh Thrust Test R positive Sacral Thrust Test Imaging: MRI non contrsat lumbar spine from 10/11/23 reviewed Assessment/ Plan : R Sacroiliitis, Lumbar radiculopathy Recommendation of RAYSHAWN L4-L5 #1. Risks, benefits of procedure discussed and patient verbalized understanding. Admits to aspirin or anti- coagulant use or medical history of diabetes. Protocol for discontinuation/ continuation of medications earl procedure discussed. Use, side effects, adverse reactions and safe storage discussed. Pt acknowledged understanding. All questions answered. I have spent greater than 30 minutes on patient care today. Dr Bowden was available by phone for the evaluation of this patient. The time was used to review the medical records including relevant urine studies and Prescription history (MAPs), review of the available imaging, evaluation and examination of the patient, coordination of care with the medical staff and if applicable referring physicians, as well as creation of the medical record PQRS Narrative: Smoking Status Current some day smoker Hx Alcohol Use (MH) Yes: social Home Medications: Ambulatory Orders Lovastatin [Mevacor] 20 mg PO DAILY 11/05/14 Ammonium Lactate Cream [Lac-Hydrin 12% Cream] 1 applic TOPICAL BID 12/04/18 Lisinopril-Hctz 10-12.5 mg [Zestoretic 10-12.5] 1 tab PO QAM 12/04/18 1% Cream (Unknown Name) 1 applic TOPICAL BID 10/14/19 oxyCODONE HCL/ACETAMINOPHEN [Percocet 7.5-325 mg Tablet] 1 each PO Q4H PRN 3 Days #15 tab 07/13/22 Alphalatioic Acid 600 mg PO DAILY 07/15/22 Gabapentin [Neurontin] 300 mg PO BID 07/15/22 Ibuprofen 800 mg PO BID 07/15/22 Metformin(Unknown) 1 tab PO DAILY 07/15/22 Omeprazole 20 mg PO DAILY PRN 07/15/22 atenoloL 25 mg PO DAILY 07/15/22 Controlled Substance Measures - Controlled Substance Measures Is patient prescribed a controlled substance at discharge?: Yes When asked, does pt state using other controlled substances?: Yes If prescribed controlled substance>3 days was MAPS reviewed?: Prescribed <3 Days
== END ==
LOC: PNWHC3 10:19
PROVIDERS: ATTEND Specialist
DX: M47.26 Other spondylosis with radiculopathy, lumbar region (principal); M46.1 Sacroiliitis, not elsewhere classified; F17.210 Nicotine dependence, cigarettes, uncomplicated; Z88.8 Allergy status to other drugs, medicaments and biological substances
CPT/HCPCS: 99211

== ENCOUNTER 2024-02-22 06:59 | Day surgery (SDC) | payer OTHER ==
[2024-02-22 07:32] VITALS: TEMP 98.3
[2024-02-22] MEDS ORDERED: LACTATED RINGERS 1,000 ML IV SCH (07:37)
[2024-02-22 07:56] LABS: Glucose,Whole Blood 140 mg/dL (70-110)
[2024-02-22] MEDS ORDERED: methylPREDNISolone ACETATE 40 MG/ML 1 ML VIAL ONE (08:37)
[2024-02-22] MEDS ORDERED: IOPAMIDOL M200 10 ML VIAL ONE (08:37)
--- NOTE | 2024-02-22 08:44 | P.PCN ---
Date of Procedure: 02/22/24 Procedure(s) Performed: PREOPERATIVE DIAGNOSIS: 1-lumbar radiculopathy POSTOPERATIVE DIAGNOSIS: 1-lumbar radiculopathy. PROCEDURE 1. Lumbar epidural steroid injection under fluoroscopic guidance at the L4-5 level. (Fluoroscopy imaging was available in radiology department) 2. Lumbar epidurogram. ANESTHESIA: Lidocaine 1% 3 and then only. EBL: Minimal PROCEDURE INDICATION: The patient with low back pain and radiculitis symptoms unresponsive to conservative treatment. Fluoroscopy was used to optimize visualization of the needle placement and to maximize safety. PROCEDURE DESCRIPTION / TECHNIQUE: The patient was seen and identified in the preoperative area. Risks, benefits, complications including but not limited to infections ,bleeding ,allergic reaction to the medications ,nerve damage and not complete pain releife , and alternatives were discussed with the patient. The patient agreed to proceed with the procedure and signed the consent, and vital signs were stable. Patient was taken to the OR and time out was completed. The patient was placed in the prone position on procedure table and a pillow was placed under the abdomen to reduce lumbar lordosis. The lumbosacral area was prepped and draped in the usual sterile fashion.ere closely monitored during the procedure. Vital signs was monitered during the entire procedure. Using anterior-posterior fluoroscopy, the L4-5 interlaminar space was identified and the skin over this site was marked and then infiltrated with 1% lidocaine subcutaneously. Subsequently, a 18-gauge 6 inches long Tuohy epidural needle was inserted and advanced toward the epidural space using the ``Loss of resistance technique and guided by AP and lateral fluoroscopy. The correct needle position in the epidural space was verified with the injection of 2 mL of the water soluble contrast dye Isovue 200 contrast and observing an excellent epidurogram with the epidural spread of the dye, after negative aspiration for blood and CSF and in the absence of paresthesias. Again after negative aspiration, a 6 ml mixture containing 40 mg of Depo-medrol ( Preservetive Free ), and 2 ml of preservative free Normal Saline, and 2 ml of preservative free lidocaine 1% solution was injected and a washout of epidurogram was seen. Needle was withdrawn intact, skin was cleansed, and bandages were applied. COMPLICATIONS: None DISPOSITION / PLANS: The patient was placed in a supine position and transferred to the recovery area in a stable condition for observation. There was no evidence of lower extremity motor or sensory deficit after the procedure. Patient was discharged from the recovery room after meeting discharge criteria. Home discharge instructions were given to the patient by the staff. The patient was reexamined prior to discharge. The patient will schedule a follow up in the clinic in 2-4 weeks.
[2024-02-22 08:52] VITALS: RESP 16
[2024-02-22 09:10] VITALS: BP 112/68; PULSE 61
--- NOTE | 2024-02-22 10:57 | FL ---
Fluoroscopy History: Lumbar Epid Inj Lumbar Epid Inj 5sec fluoro time .[id number] [facility], , 02/22/2024 10:55 AM
== END 2024-02-22 09:13 | disposition home or self-care (01) ==
LOC: ORPAIN 06:59
PROVIDERS: ATTEND Specialist
DX: M54.16 Radiculopathy, lumbar region (principal); E11.9 Type 2 diabetes mellitus without complications; Z79.1 Long term (current) use of non-steroidal anti-inflammatories (NSAID); Z79.84 Long term (current) use of oral hypoglycemic drugs; Z88.8 Allergy status to other drugs, medicaments and biological substances
CPT/HCPCS: 62323; Q9966; J1010

== ENCOUNTER → 2024-03-20 | Outpatient (CLI) | payer OTHER ==
[2024-03-20 13:33] VITALS: BP 125/67; PULSE 83; RESP 18; TEMP 97.6
--- NOTE | 2024-03-20 16:08 | P.PAINPG ---
PQRS Measure Charge Sheet Comment: HISTORY OF PRESENT ILLNESS: A 68 yr old female w at side presents today w severe and chronic LBP > 1 yr mo secondary to radiculopathy, spondylosis and facet arthropathy without myelopathy, R Sacroiliitis for evaluation s/p RAYSHAWN L4-L5 #1. Pt states she experienced 70 % pain relief x 2 wks s/p procedure. Pt states pain level is provoked at 8 /10 in intensity, constant, predominantly axial, localized in the mid to lower lumbar spine, achy, throbbing in character w shooting pain towards the hips and BL knees. Pain is provoked by weight bearing activity. Pain is alleviated by PT twice weekly x 16 wks which she is currently in, heat, medications , repositioning and rest. Interventional procedures include R SI injection x1 (July 2022), RAYSHAWN L4-L5 X1 (Feb 2024) Medications include Tramadol, Ibu REVIEW OF ORGAN SYSTEMS: CONSTITUTIONAL: No fevers or chills. No recent weight l oss. NEUROLOGICAL: + numbness and tingling along the distal extremities. No seizure disorders or headaches. MUSCULOSKELETAL: + pain PSYCHIATRIC: Denies current depression or suicidal thoughts. Physical Examinations : Constitutional : Cooperative , not in acute distress . Neurologic : Cranial nerve II to XII intact. No focal neurological deficits. Psychiatric : alert & oriented x 3. Matching mood & appropriate affect. Judgment & insight intact. Musculoskeletal : Cervical Spine Motor strength in the deltoid and biceps: Normal right side. Normal Left side Motor strength biceps and the wrist extensors: Normal right side . Normal left side Motor strength in the triceps muscle: Normal right side. Normal left side Deep tendon reflexes: Normal at the biceps. Normal at Brachioradialis. Normal at triceps Vertebral body tenderness to deep palpation over Cervical facet loading test: positive bilaterally Spurling test: positive bilaterally Neck distraction test: positive bilaterally Aurea sign: positive bilaterally Lumbar spine Motor strength lower extremities ,thigh and legs 5/5 Right side , 5/5 Left side Deep tendon reflexes : Normal Knee Jerk. Normal Ankle Jerk Vertebral body tenderness over L4 Lumbar facet Loading Test: positive Right / positive Left Range of motion of the lumbar spine Flexion 30 degrees, extension 10 degrees Straight Leg Raise test: Left/ Right positive at < 35 degrees Yaneth test: positive right / positive left. Severe tenderness over the Sacroiliac joint on the Right / Left sides Gaenslen test: positive bilaterally Seated flexion test: positive bilaterally. Sacral spine : Severe tenderness over the Sacroiliac joint: right side / left side Range of motion: Flexion of the lumbar spine <60 degrees Range of motion: Extension of the lumbar spine <20 degrees R Gaenslen's Test positive Yaneth test: positive right side / left side Thigh Thrust Test R positive Sacral Thrust Test Imaging: MRI non contrsat lumbar spine from 10/11/23 reviewed Assessment/ Plan : R Sacroiliitis, Lumbar radiculopathy Recommendation of R TFESI L4-L5/ L5-S1 #2. Risks, benefits of procedure discussed and patient verbalized understanding. Admits to aspirin or anti- coagulant use or medical history of diabetes. Protocol for discontinuation/ continuation of medications earl procedure discussed. Use, side effects, adverse reactions and safe storage discussed. Pt acknowledged understanding. All questions answered. I have spent greater than 30 minutes on patient care today. Dr Bowden was available by phone for the evaluation of this patient. The time was used to review the medical records including relevant urine studies and Prescription history (MAPs), review of the available imaging, evaluation and examination of the patient, coordination of care with the medical staff and if applicable referring physicians, as well as creation of the medical record PQRS Narrative: Smoking Status Current some day smoker Hx Alcohol Use (MH) Yes: social Home Medications: Ambulatory Orders Lisinopril-Hctz 10-12.5 mg [Zestoretic 10-12.5] 1 tab PO QAM 12/04/18 1% Cream (Unknown Name) 1 applic TOPICAL BID PRN 10/14/19 atenoloL 20 mg PO BID 07/15/22 Acetaminophen [Tylenol Arthritis] 1,300 mg PO DAILY 02/21/24 Ibuprofen [Motrin] 600 mg PO BID 02/21/24 Rosuvastatin [Crestor] 10 mg PO DAILY 02/21/24 amLODIPine [Norvasc] 5 mg PO DAILY 02/21/24 metFORMIN HCL ER [Glucophage XR] 500 mg PO DAILY 02/21/24 sitaGLIPtin [Januvia] 100 mg PO DAILY 02/21/24 oxyCODONE HCL/ACETAMINOPHEN [Percocet 7.5-325 mg] 1 tab PO Q4HR PRN 3 Days #18 tab 03/20/24 Controlled Substance Measures - Controlled Substance Measures Is patient prescribed a controlled substance at discharge?: Yes When asked, does pt state using other controlled substances?: Yes If prescribed controlled substance>3 days was MAPS reviewed?: Prescribed <3 Days
== END ==
LOC: PNWHC3 12:41
PROVIDERS: ATTEND Specialist
DX: M54.16 Radiculopathy, lumbar region (principal); M46.1 Sacroiliitis, not elsewhere classified; F17.210 Nicotine dependence, cigarettes, uncomplicated; Z91.09 Other allergy status, other than to drugs and biological substances
CPT/HCPCS: 99211

== ENCOUNTER → 2024-04-05 | Day surgery (SDC) | payer OTHER ==
[~2024-04-05] MED LIST changes: -BUPIVACAINE (PF) 0.25% 30 ML VIAL SQ ONE; -DEXAMETHASONE SOD PHOSPHATE 10 MG/ML 1 ML VIAL IV ONE; -HYDROmorphone 0.5 MG/0.5 ML SYRINGE IVP PRN; +IOPAMIDOL M200 10 ML VIAL ONE; -LIDOCAINE 1% (10MG/ML) FOR IV START INTRADERMA PRN; -LIDOCAINE 1% INJ 10MG/ML (20 ML MDV) ONE; -MIDAZOLAM 2 MG/2 ML VIAL ONE; -ONDANSETRON 4 MG/2 ML VIAL IVP ONE; -ONDANSETRON 4 MG/2 ML VIAL ONE; -PROPOFOL 10 MG/ML 20 ML VIAL IV ONE; -SCOPOLAMINE 1.5MG/72HR PATCH TRANSDERM ONE; -fentaNYL (PF) 50 MCG/ML 2 ML AMP ONE; +methylPREDNISolone ACETATE 80 MG/ML 1 ML VIAL ONE
[2024-04-05 07:14] VITALS: TEMP 97.2
[2024-04-05 07:17] LABS: Glucose,Whole Blood 143 mg/dL (70-110)
--- NOTE | 2024-04-05 08:19 | P.PCN ---
Date of Procedure: 04/05/24 Procedure(s) Performed: PREOPERATIVE DIAGNOSIS: 1-Lumbar radiculopathy . 2-lumbar degenerative disc disease. 3-lumbar spondylosis with lumbar facet arthropathy without myelopathy POSTOPERATIVE DIAGNOSIS: 1-lumbar radiculopathy. 2-lumbar degenerative disc disease. 3-lumbar spondylosis with facet arthropathy without myelopathy PROCEDURE 1. Transforaminal epidural steroid injection under fluoroscopic guidance at right L4-5, L5-S1 level. (Fluoroscopy images stored on file in the radiology Department ) 2. Lumbar epidurogram . ANESTHESIA: Local with 1% lidocaine 3 ml. EBL: Minimal PROCEDURE INDICATION: The patient with low back pain and radiculopathy symptoms unresponsive to conservative treatment. PROCEDURE DESCRIPTION / TECHNIQUE: The patient was seen and identified in the preoperative area. Risks, benefits, complications, and alternatives were discussed with the patient. The patient agreed to proceed with the procedure and signed the consent. IV was started, and vital signs were stable. Patient was taken to the OR and time out was completed. The patient was placed in the prone position on procedure table and a pillow was placed under the abdomen to reduce lumbar lordosis. The lumbosacral area was prepped and draped in the usual sterile fashion. Critical pause was taken. Vital signs were closely monitored during the procedure. Using oblique fluoroscopy, the chin of the `BhumiJoo dog at right L4-5 level was identified, and the skin and deeper tissues just below was localized with 1% lidocaine. Subsequently, a 22-gauge 5-inch spinal needle was advanced under a tunneled view fluoroscopic guidance just underneath the chin of the `Zacy dog at the right L4-5 Under lateral fluoroscopy, the needle was then advanced to the posterior border of the interforaminal space. After negative aspiration of CSF and blood and with no paresthesias, 1 mL Isovue 200 contrast dye was injected excellent epidurogram and outlining of the nerve root Subsequently, 3 mL of block solution containing 30 mg Depo-Medrol and 2 mL of 0.9% normal saline PF was injected. Needle was removed and the same procedure was repeated at the right L5-S1 level . At the end of the procedure, skin was cleansed, and bandages were applied. COMPLICATIONS:none DISPOSITION / PLANS: The patient was placed in a supine position and transferred to the recovery area in a stable condition for observation. There was no evidence of lower extremity motor or sensory deficit after the procedure. Patient was discharged from the recovery room after meeting discharge criteria. Home discharge instructions were given to the patient by the staff. The patient was reexamined prior to discharge.
[2024-04-05 08:40] VITALS: BP 105/67; PULSE 61; RESP 18
--- NOTE | 2024-04-05 09:33 | FL ---
EXAMINATION TYPE: FL guided pain mgmt statistic DATE OF EXAM: 04/05/2024 FLUOROSCOPY 19 sec fluoro, dap .[id number] Gym2 2 images are submitted for transforaminal epidural injection of the lumbar spine at 2 levels. [facility], , 04/05/2024 9:31 AM
== END ==
LOC: ORPAIN 05:59
PROVIDERS: ATTEND Specialist
DX: M47.26 Other spondylosis with radiculopathy, lumbar region (principal); M51.16 Intervertebral disc disorders with radiculopathy, lumbar region; Z91.09 Other allergy status, other than to drugs and biological substances
CPT/HCPCS: 64483; 64484; Q9966; J1010